=== PATIENT | female | born 1975 | race Caucasian/White ===

== ENCOUNTER 2016-11-27 19:12 | Emergency (ER) | payer OTHER ==
[2016-11-27 19:16] VITALS: TEMP 98.2
[2016-11-27] MEDS ORDERED: LET GEL TOPICAL 1 EA SYR TP ONE ×2 (19:33→19:39)
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
[2016-11-27 21:06] VITALS: BP 121/69; PULSE 70; RESP 16; O2SAT 96
== END 2016-11-27 21:05 | disposition home or self-care (01) ==
DX: S60.222A Contusion of left hand, initial encounter (principal); S60.512A Abrasion of left hand, initial encounter; S50.811A Abrasion of right forearm, initial encounter; V18.0XXA Pedal cycle driver injured in noncollision transport accident in nontraffic accident, initial encounter
CPT/HCPCS: L3807

== ENCOUNTER → 2018-07-10 | Outpatient (CLI) | payer BC | LOC: BMCIMAGING 13:37 | PROVIDERS: ATTEND Internal Medicine | DX: Z12.31 Encounter for screening mammogram for malignant neoplasm of breast (principal) ==

== ENCOUNTER → 2018-07-20 | Outpatient (CLI) | payer BC | LOC: BMCIMAGING 10:17 | PROVIDERS: ATTEND Internal Medicine | DX: R92.8 Other abnormal and inconclusive findings on diagnostic imaging of breast (principal) ==